=== PATIENT | female | born 1970 | race Caucasian/White ===

== ENCOUNTER 2023-06-05 16:22 | Observation (INO) | payer MEDICARE ==
[2023-06-05] MEDS ORDERED: Morphine 4 MG/ML VIAL ONE ×2 (17:02→19:20)
[2023-06-05 17:18] LABS: #Basophils 0.1 thou/uL (0.0-0.2); #Eosinphils 0.1 thou/uL (0.0-0.7); #Monocytes 0.4 thou/uL (0.11-0.59); #Neutrophils 3.8 thou/uL (1.40-6.50); %Basophils 0.7 % (0.0-1.0); %Eosinophils 1.8 % (0.0-10.0); %Lymphocytes 35.6 % (21.0-51.0); %Monocytes 5.5 % (0.0-10.0); %Neutrophils 56.3 % (42.0-75.0); Hematocrit 38.6 % (36.0-47.0); Hemoglobin 12.8 g/dL (12.0-16.0); Mean Corpuscular HGB CONC 33.2 g/dL (32.0-36.0); Mean Corpuscular Hemoglobin 28.1 pg (27.0-31.0); Mean Corpuscular Volume 84.8 fl (78.0-98.0); Mean Platelet Volume 9.7 fL (7.4-10.4); Platelet Count 351 10x3/uL (130-400); Red Blood Cell (RBC) Count 4.55 mill/uL (4.20-5.40); White Blood Cell (WBC) Count 6.7 10x3/uL (4.8-10.8)
[2023-06-05 17:27] LABS: Bacteria/HPF None Seen HPF (None Seen); Bilirubin Negative (Negative); Blood, Urine Negative (Negative); CAUTI Indications for Culture Pelvic or flank pain; Clarity Clear (Clear); Glucose, Urine (Dipstick) Greater than 1000 mg/dL (Negative); Ketone, Urine Negative (Negative); Leukocyte Negative Leu/uL (Negative); Nitrite Negative (Negative); Protein, Urine (Dipstick) Negative (Neg-Trace); RBC/HPF 0-3 HPF (0-3); Specific Gravity, Urine 1.019 (1.002-1.036); Squamous Epithelial 0-3 HPF (0-3); Urobilinogen Normal mg/dL (Less than 2); WBC/HPF 0-3 HPF (0-3); pH, Urine 7.5 (5.0-9.0)
[2023-06-05 17:29] LABS: Urine Culture Reflex No No
[2023-06-05 17:46] LABS: ALT (SGPT) 21 U/L (8-55); AST (SGOT) 18 U/L (5-34); Albumin 4.3 g/dL (3.5-5.0); Alkaline Phosphatase 82 U/L (40-110); Anion Gap 15 mmol/L (10-20); BUN (Urea Nitrogen) 10 mg/dL (9.8-20.1); Bilirubin, Total 0.5 mg/dL (0.2-1.2); Calc. Creatinine Clearance 0 mL/min (70-130); Calcium 9.5 mg/dL (7.8-10.44); Carbon Dioxide 25 mmol/L (22-29); Chloride 107 mmol/L (98-107); Estimated GFR 106; Globulin 3.2 g/dL (2.4-3.5); Glucose 109 mg/dL (70-105); Potassium 3.5 mmol/L (3.5-5.1); Protein, Total 7.5 g/dL (6.0-8.3); Sodium 143 mmol/L (136-145)
[2023-06-05 17:49] LABS: PTT 25.3 sec (22.9-36.1); Prothrombin Time 13.1 sec (12.0-14.7)
[2023-06-05] MEDS ORDERED: Ketorolac Tromethamine 30 MG/ML VIAL ONE (19:20)
[2023-06-05] MEDS ORDERED: Glucagon 1 MG/ML KIT IM PRN (20:22)
[2023-06-05] MEDS ORDERED: HumaLOG 300 UNITS/3 ML VIAL SC PRN ×2 (20:22)
[2023-06-05] MEDS ORDERED: Dextrose 5% in Water 1,000 ML IV PRN (20:22)
[2023-06-05] MEDS ORDERED: Senokot S 8.6-50 MG TAB PO PRN (20:22)
[2023-06-05] MEDS ORDERED: Ondansetron PF 4 MG/2 ML Vial IVP PRN (20:22)
[2023-06-05] MEDS ORDERED: Dextrose 50% Abboject 50 ML SYRINGE SLOW IVP PRN (20:22)
[2023-06-05] MEDS ORDERED: Ondansetron ODT 4 MG TAB PO PRN (20:22)
[2023-06-05] MEDS ORDERED: Calcium Carbonate 500 MG ChewTAB PO PRN (20:22)
[2023-06-05] MEDS ORDERED: Acetaminophen 325 MG TAB PO PRN (20:22)
[2023-06-05] MEDS ORDERED: Morphine 4 MG/ML VIAL SLOW IVP PRN (20:28)
[2023-06-05 21:16] VITALS: BMI 31.1
[2023-06-05] MEDS ORDERED: traZODone HCl 50 MG TAB PO PRN (21:53)
[2023-06-05] MEDS ORDERED: Heparin 10,000 UNITS/ 10 ML VIAL ONE (22:06)
[2023-06-05] MEDS ORDERED: Ondansetron PF 4 MG/2 ML Vial ONE (22:40)
[2023-06-05] MEDS: Heparin 5,000 UNITS/ML VIAL SC SCH (22:44)
[2023-06-06] MEDS ORDERED: Morphine 4 MG/ML VIAL ONE (03:22)
[2023-06-06] MEDS ORDERED: MAGNESIUM CITRATE 100 MG PO SCH (09:00)
[2023-06-06] MEDS ORDERED: ALPHA LIPOIC ACID 200 MG PO SCH (09:00)
[2023-06-06 09:16] LABS: #Basophils 0.1 thou/uL (0.0-0.2); #Eosinphils 0.2 thou/uL (0.0-0.7); #Monocytes 0.3 thou/uL (0.11-0.59); #Neutrophils 4.5 thou/uL (1.40-6.50); %Basophils 0.7 % (0.0-1.0); %Monocytes 4.5 % (0.0-10.0); %Neutrophils 60.5 % (42.0-75.0); Hemoglobin 12.9 g/dL (12.0-16.0); Mean Corpuscular HGB CONC 32.3 g/dL (32.0-36.0); Mean Corpuscular Hemoglobin 27.6 pg (27.0-31.0); Mean Corpuscular Volume 85.5 fl (78.0-98.0); Mean Platelet Volume 9.5 fL (7.4-10.4); Platelet Count 341 10x3/uL (130-400); RBC Distribution Width 14.2 % (11.5-14.5); Red Blood Cell (RBC) Count 4.68 mill/uL (4.20-5.40); White Blood Cell (WBC) Count 7.5 10x3/uL (4.8-10.8)
[2023-06-06] MEDS: Aspirin 81 mg Enteric Coated Tablet PO SCH (09:34)
[2023-06-06] MEDS: Aripiprazole 10 MG TAB PO SCH (09:34)
[2023-06-06] MEDS: DULoxetine 20 MG CAP PO SCH (09:35)
[2023-06-06] MEDS: Pramipexole Di-HCl 0.25 MG TAB PO SCH ×4 (09:35→21:15)
[2023-06-06] MEDS: Oxybutynin ER 5 MG TAB PO SCH (09:35)
[2023-06-06] MEDS: Atorvastatin Calcium 40 MG TAB PO SCH (09:35)
[2023-06-06] MEDS: Gabapentin 300 MG CAP PO SCH ×4 (09:35→21:13)
[2023-06-06] MEDS: lamoTRIgine 100 MG TAB PO SCH (09:35)
[2023-06-06] MEDS: Heparin 5,000 UNITS/ML VIAL SC SCH ×3 (09:36→21:14)
[2023-06-06] MEDS: Ketorolac Tromethamine 30 MG/ML VIAL IVP PRN ×2 (09:36→21:17)
[2023-06-06] MEDS: Amitriptyline HCl 25 MG TAB PO SCH (09:37)
[2023-06-06 09:40] LABS: Anion Gap 13 mmol/L (10-20); BUN (Urea Nitrogen) 11 mg/dL (9.8-20.1); Calc. Creatinine Clearance 148 mL/min (70-130); Calcium 9.6 mg/dL (7.8-10.44); Carbon Dioxide 26 mmol/L (22-29); Chloride 103 mmol/L (98-107); Estimated GFR 106; Glucose 162 mg/dL (70-105); Potassium 3.4 mmol/L (3.5-5.1); Sodium 139 mmol/L (136-145)
[2023-06-06] MEDS: Amlodipine 10 MG TAB PO SCH (11:04)
[2023-06-06] MEDS: Empagliflozin 10 MG TAB PO SCH (11:04)
[2023-06-06] MEDS ORDERED: Insulin Glargine 30 UNITS/0.3 ML VIAL SC SCH (21:00)
[2023-06-07 05:49] LABS: #Eosinphils 0.2 thou/uL (0.0-0.7); #Monocytes 0.4 thou/uL (0.11-0.59); #Neutrophils 4.2 thou/uL (1.40-6.50); %Basophils 0.5 % (0.0-1.0); %Eosinophils 2.1 % (0.0-10.0); %Lymphocytes 34.9 % (21.0-51.0); %Monocytes 5.9 % (0.0-10.0); %Neutrophils 56.5 % (42.0-75.0); Hematocrit 37.8 % (36.0-47.0); Hemoglobin 12.4 g/dL (12.0-16.0); Mean Corpuscular HGB CONC 32.8 g/dL (32.0-36.0); Mean Corpuscular Hemoglobin 27.7 pg (27.0-31.0); Mean Corpuscular Volume 84.4 fl (78.0-98.0); Mean Platelet Volume 9.8 fL (7.4-10.4); Platelet Count 325 10x3/uL (130-400); RBC Distribution Width 13.5 % (11.5-14.5); Red Blood Cell (RBC) Count 4.48 mill/uL (4.20-5.40); White Blood Cell (WBC) Count 7.5 10x3/uL (4.8-10.8)
[2023-06-07 06:25] LABS: Anion Gap 17 mmol/L (10-20); BUN (Urea Nitrogen) 17 mg/dL (9.8-20.1); Calc. Creatinine Clearance 140 mL/min (70-130); Calcium 9.1 mg/dL (7.8-10.44); Carbon Dioxide 23 mmol/L (22-29); Chloride 103 mmol/L (98-107); Estimated GFR 104; Glucose 110 mg/dL (70-105); Potassium 3.7 mmol/L (3.5-5.1); Sodium 139 mmol/L (136-145)
[2023-06-07] MEDS: Oxybutynin ER 5 MG TAB PO SCH (08:14)
[2023-06-07] MEDS: Gabapentin 300 MG CAP PO SCH ×2 (08:14→12:28)
[2023-06-07] MEDS: Aspirin 81 mg Enteric Coated Tablet PO SCH (08:14)
[2023-06-07] MEDS: Heparin 5,000 UNITS/ML VIAL SC SCH ×2 (08:15→14:11)
[2023-06-07] MEDS: lamoTRIgine 100 MG TAB PO SCH (08:15)
[2023-06-07] MEDS: Aripiprazole 10 MG TAB PO SCH (08:15)
[2023-06-07] MEDS: Pramipexole Di-HCl 0.25 MG TAB PO SCH ×2 (08:15→12:28)
[2023-06-07] MEDS: Atorvastatin Calcium 40 MG TAB PO SCH (08:15)
[2023-06-07] MEDS: Amlodipine 10 MG TAB PO SCH (08:15)
[2023-06-07] MEDS: DULoxetine 20 MG CAP PO SCH (08:15)
[2023-06-07] MEDS: Amitriptyline HCl 25 MG TAB PO SCH (08:16)
[2023-06-07] MEDS: Empagliflozin 10 MG TAB PO SCH (08:16)
[2023-06-07] MEDS ORDERED: Magnesium Oxide 400 MG TAB PO SCH (09:00)
[2023-06-07 11:54] VITALS: BP 134/81; TEMP 98.4
== END 2023-06-07 16:35 | disposition home or self-care (01) ==
LOC: ERS 16:22 → ERHOLD 20:22 → SURG A 06-06 08:48
PROVIDERS: ADMIT Internal Medicine; ATTEND Physician Assistant
DX: R53.1 Weakness (principal); M79.7 Fibromyalgia; I10 Essential (primary) hypertension; E78.5 Hyperlipidemia, unspecified; E11.9 Type 2 diabetes mellitus without complications; G47.33 Obstructive sleep apnea (adult) (pediatric); G25.81 Restless legs syndrome; E66.01 Morbid (severe) obesity due to excess calories; Z68.31 Body mass index [BMI] 31.0-31.9, adult; Z88.5 Allergy status to narcotic agent; Z88.8 Allergy status to other drugs, medicaments and biological substances; Z91.048 Other nonmedicinal substance allergy status; Z86.73 Personal history of transient ischemic attack (TIA), and cerebral infarction without residual deficits; Z90.710 Acquired absence of both cervix and uterus; Z79.4 Long term (current) use of insulin; Z79.899 Other long term (current) drug therapy; Z79.82 Long term (current) use of aspirin; W19.XXXA Unspecified fall, initial encounter
CPT/HCPCS: 71045; 72170; 72192; 73502; 80048 ×2; 80053; 81001; 82962 ×2; 85025 ×3; 85610; 85730; 86850; 86900; 86901; 93005; 94760; 96361; 96374; 96375; 96376 ×3; 97116; 97530; 97535; 99285; G0378 ×4; 36415; 36416; J1644; J1815; J1885; J2270; J2405